=== PATIENT | male | born 1950 | race Caucasian/White ===

== ENCOUNTER → 2016-09-09 | Outpatient (CLI) | payer OTHER ==
[~2016-09-09] MED LIST: CHOL2000 PO; GLUC1CAP33 PO; HYDR-5688 PO; IBUP-103 PO; MULTTAB58 PO; OMEG10007 PO; PROB1TAB16 PO
--- NOTE | 2016-09-09 15:49 | DIAGNOSTIC IMAGING REPORT ---
TWO VIEW CHEST CLINICAL HISTORY: Lower respiratory tract infection. Cough and fever. FINDINGS: PA and lateral chest radiographs are compared to study dated 08/23/2015. The heart is top normal for projection. There is mild atherosclerotic calcification of the thoracic aorta. Emphysema and chronic interstitial thickening are similar to previous. No airspace consolidation or pleural effusion is identified. There is no pneumothorax. The bony thorax appears intact. Degenerative change and scoliosis are noted in the thoracic spine. IMPRESSION: Emphysematous change with no acute cardiopulmonary abnormality. Electronically signed by: Germán Avila M.D. 09/09/2016 3:47 PM Dictated Date/Time: 09/09/2016 3:46 PM
== END | disposition home or self-care (01) ==
LOC: C.RAD 15:26
PROVIDERS: ATTEND Plastic Surgery
DX: J22 Unspecified acute lower respiratory infection (principal)

== ENCOUNTER → 2016-09-25 | Outpatient (CLI) | payer OTHER ==
[~2016-09-25] MED LIST changes: +OPTIRAY 320 IV PRN
--- NOTE | 2016-09-25 08:10 | DIAGNOSTIC IMAGING REPORT ---
ABDOMEN AND PELVIS CT EXAMINATION PRE AND POST INTRAVENOUS CONTRAST CT DOSE: 1128.90 mGy.cm HISTORY: Flank pain. Nephrocalcinosis. R31.0 Gross exczxvgopL19.0 Urinary tract jbzmefpdeK23.0 Nephroi TECHNIQUE: Multiaxial CT images of the abdomen and pelvis were performed pre and post intravenous contrast enhancement. COMPARISON STUDY: T 2015 FINDINGS: Lung bases are clear. Liver is uniform throughout. There is a stable benign hemangioma posterior aspect right hepatic lobe. Bowel pattern is nonobstructive. There is moderate increase in fecal load throughout the colon. Right kidney shows mild cortical scarring. There are several microcysts present. These are unchanged from the prior study. There is no evidence for obstructive change involving the right renal collecting system. Left kidney shows interval resolution of the previously described calcification within the renal pelvis. 6. Cyst remains stable as do several smaller cortical cysts. There are small nonobstructing calcifications mid aspect left kidney measuring 3 mm with a 4 mm nonobstructing calcification lower pole left kidney. Calcifications again within the renal pelvis is no longer present. Bladder is midline. Distention of the distal aspects of the ureters. This is unchanged. This may represent an part congenital megaloureter distally. There is again no hydronephrosis. LAD is midline. There are several calcifications in the evening aspect of the bladder and/or peripheral margin of the prostate anteriorly. This represents no interval change. Enhancement characteristics of the urinary tracts appear unremarkable. There is no significant retroperitoneal adenopathy. Bladder is midline. There are no major filling defects. IMPRESSION: 1. Interval resolution of the calcification previous described within the left renal pelvis. 2. 2 nonobstructing left renal calcifications. 3. Several small renal cysts as well as a unchanging small posterior right hepatic lobe hemangioma. 4. 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 5. Several calcifications base of the bladder versus anterior prostate Electronically signed by: Balwinder Puente M.D. 09/25/2016 8:08 AM Dictated Date/Time: 09/25/2016 7:57 AM
== END | disposition home or self-care (01) ==
LOC: C.CTS 07:06
PROVIDERS: ATTEND Urology
DX: N20.0 Calculus of kidney (principal); N39.0 Urinary tract infection, site not specified; R31.0 Gross hematuria

== ENCOUNTER → 2016-10-16 | Outpatient (CLI) | payer OTHER ==
[~2016-10-16] MED LIST changes: -OPTIRAY 320 IV PRN
== END | disposition home or self-care (01) ==
LOC: C.LABSPEC 11:37
PROVIDERS: ATTEND Urology
DX: N20.0 Calculus of kidney (principal)

== ENCOUNTER → 2017-03-08 | Day surgery (SDC) | payer OTHER ==
[2017-02-23 09:57] VITALS: Ht 188 cm; Wt 88.0 kg
[2017-02-26 09:31] LABS: BASO % 0.2 %; BASO ABS # 0.01 K/uL (0-0.2); COMPLETE YES; EOS % 0.9 %; HEMATOCRIT 41.6 % (42-52); IG% 0.2 %; LYMPH % 24.5 %; LYMPH ABS # 1.36 K/uL (1.2-3.4); MEAN CELL VOLUME 88.7 fL (80-100); MEAN CORPUSCULAR HEMOGLOBIN 29.4 pg (25-34); MEAN CORPUSCULAR HGB CONC 33.2 g/dl (32-36); MEAN PLATELET VOLUME 9.6 fL (7.4-10.4); MONO % 8.8 %; NEUT % 65.4 %; PLATELET COUNT 197 K/uL (130-400); RED BLOOD COUNT 4.69 M/uL (4.7-6.1); WHITE BLOOD COUNT 5.56 K/uL (4.8-10.8)
[2017-02-26 09:42] LABS: BUN/CREATININE RATIO 18.3 (10-20); CALCIUM 9.7 mg/dl (8.5-10.1); CREATININE 1.1 mg/dl (0.60-1.40); POTASSIUM 4.2 mmol/L (3.5-5.1)
[~2017-03-08] VITALS: Ht 188 cm; Wt 88.0 kg
[~2017-03-08] MED LIST changes: +ATROPINE SULFATE 0.1 MG/ML 5ML SYR IV PRN; +CEFAZOLIN 2000 MG/60 ML D5W IV SCH; -CHOL2000 PO; +CLINDAMYCIN 600 MG/54 ML D5W IV SCH; +CLINDAMYCIN 600MG IV SCH; +DEXAMETHASONE SOD INJ 4 MG/ML VIAL ONE; +EpHEDrine SULFATE INJ 50 MG/ML AMP IV PRN; +EpHEDrine SULFATE INJ 50 MG/ML AMP ONE; +EpINEphrine INJ 1MG/ML AMP 1 MG/ML AMP ONE; +FENTANYL CITRATE INJ 50 MCG/1 ML 2 ML VIAL ONE; -GLUC1CAP33 PO; +HYDROCODONE/ACETAMOPHEN 5/325MG TAB PO PRN; +HYDROmorphone INJ 1 MG/ML SYR IV PRN; -IBUP-103 PO; +KETOROLAC TROMETHAMINE 30 MG/ML VIAL ONE; +LACTATED RINGER'S 1000ML 1,000 ML IV SCH; +LIDOCAINE HCL 2% 2 ML VIAL (20MG/ML) ONE; +MIDAZOLAM HCL 1 MG/ML 2ML VIAL ONE; -MULTTAB58 PO; -OMEG10007 PO; +ONDANSETRON INJ 2 MG/ML 2 ML VIAL IV PRN; +ONDANSETRON INJ 2 MG/ML 2 ML VIAL ONE; -PROB1TAB16 PO; +PROMETHAZINE HCL INJ 12.5 MG in SODIUM CHLORIDE 0.9% 50ML 50 ML IV PRN; +PROPOFOL IV EMULSION 10 MG/ML 20 ML VIAL IV ONE; +ROPIVACAINE 0.5% 5 MG/ML 30 ML VIAL ONE; +SCOPOLAMINE 1.5 MG TDSY TD ONE; +SODIUM CHLORIDE 0.9% 1000ML 1,000 ML IV SCH
--- NOTE | 2017-03-08 06:50 | History & Physical Bridge - SC ---
H&P Re-Evaluation Bridge Note: I have examined the patient, reviewed the History & Physical and in the interval since the performance of the History & Physical I have noted the following changes of clinical significance: No changes noted
--- NOTE | 2017-03-08 08:16 | Discharge Instructions-SurgCtr ---
Discharge Instructions Date of Service Mar 08, 2017. Visit Reason for Visit: Left Knee Acute Medial Meniscal Tear Discharge Discharge Diagnosis / Problem: SAME ABOVE Discharge Goals Goal(s): Decrease discomfort, Improve function Activity Recommendations Activity Limitations: as noted below Driving or Machine Use: resume 1 day after discharge Weightbearing Status: Left weightbearing (as tolerated) Anesthesia . Post Anesthesia Instructions: If you have had General Anesthesia or IV Sedation: * Do not drive today. * Resume driving when surgeon permits. * Do not make important decisions or sign legal documents today. * Call surgeon for: 1. Temperature elevations greater than 101 degrees F. 2. Uncontrollable pain. 3. Excessive bleeding. 4. Persistent nausea and vomiting. 5. Medication intolerance (nausea, vomiting or rash). * For nausea and vomiting use only clear liquids such as: tea, soda, bouillon until nausea subsides, then gradually increase diet as tolerated. * If you have any concerns or questions, call your surgeon's office. If physician is unavailable and it is an emergency, call 911 or go to the nearest emergency room. . Instructions / Follow-Up Instructions / Follow-Up MEDICATIONS: * Resume previous medications unless instructed otherwise by your surgeon. * Always take pain medication on a full stomach or with food to avoid upset stomach. * Do not drink alcohol or drive while taking narcotics. * Ibuprofen or Tylenol may be taken if narcotic not needed. SPECIAL CARE INSTRUCTIONS: __ None _X_ Keep extremity elevated and iced x 48 hours; apply ice 20-30 minutes 8-10 times/day. May remove at night. _X_ Crutches _X_ May discard when able __ Brace/Post-op shoe __ 24 hrs/day __ Remove at night _X_ Dressing __ Maintain until seen in office, may shower with plastic over site _X_ Remove dressings in 24-48 hours and then may shower _X_ Cover incisions with band-aids after showering __ Do not remove steri-strips Call physician if chills or temperature rises above 102 degrees or pain unrelieved by prescribed pain medications. Office [phone] Diet Recommendations Home Diet: no limitations Fluid Restriction: None Procedures Procedures Performed: Left Knee Arthroscopy With Partial Medial Meniscectomy, Chondroplasty Pending Studies Studies pending at discharge: no Work Instructions Return To Work: after follow-up Medical Emergencies . Who to Call and When: Medical Emergencies: If at any time you feel your situation is an emergency, please call 911 immediately. . Non-Emergent Contact Non-Emergency issues call your: Primary Care Provider Call Non-Emergent contact if: you have a fever, temperature is above 101.5 . . "Provider Documentation" section prepared by Patel Jj. .
[2017-03-08] MEDS: FENTANYL CITRATE INJ 50 MCG/1 ML 2 ML VIAL IV PRN ×4 (08:25→08:53)
[2017-03-08 09:24] VITALS: TEMP 36.5
[2017-03-08 09:47] VITALS: BP 145/80; PULSE 55; O2SAT 100
--- NOTE | 2017-03-08 10:03 | Anesthesiology Progress Note ---
Anesthesia Post Op Note Date & Time Mar 08, 2017 at 10:00 Vital Signs Pain Intensity: 2 Vital Signs Past 12 Hours Date Time Temp Pulse Resp B/P (MAP) Pulse Ox O2 Delivery O2 Flow Rate FiO2 03/08/17 09:47 55 16 145/80 (101) 100 Room Air 03/08/17 09:24 36.5 57 16 123/73 (90) 99 Room Air 03/08/17 09:12 60 6 100 03/08/17 09:12 60 6 03/08/17 09:11 132/80 03/08/17 09:10 36.3 57 12 132/80 100 Room Air 03/08/17 09:07 56 13 03/08/17 09:07 57 13 99 03/08/17 09:06 141/81 03/08/17 09:02 60 12 97 03/08/17 09:02 61 12 03/08/17 09:01 125/74 03/08/17 08:57 55 0 03/08/17 08:57 56 0 99 03/08/17 08:56 136/83 03/08/17 08:52 61 12 98 03/08/17 08:52 61 12 03/08/17 08:51 134/77 03/08/17 08:47 60 13 03/08/17 08:47 60 13 100 03/08/17 08:46 135/85 03/08/17 08:42 55 14 03/08/17 08:42 54 14 100 03/08/17 08:41 133/83 03/08/17 08:37 56 3 100 03/08/17 08:37 56 3 03/08/17 08:36 124/85 03/08/17 08:32 63 9 03/08/17 08:32 65 9 100 03/08/17 08:31 134/81 03/08/17 08:27 69 7 100 03/08/17 08:27 67 7 03/08/17 08:26 121/75 03/08/17 08:22 68 12 100 03/08/17 08:22 68 12 03/08/17 08:21 133/80 03/08/17 08:17 71 18 100 03/08/17 08:17 72 18 03/08/17 08:15 98/64 03/08/17 08:13 107/58 03/08/17 08:12 36.3 65 12 107/58 98 Mask 5 03/08/17 08:12 65 5 98 03/08/17 08:12 65 5 03/08/17 06:32 36.5 60 16 127/79 (95) 100 Room Air Notes Mental Status: alert / awake / arousable, participated in evaluation Pt Amnestic to Procedure: Yes Nausea / Vomiting: adequately controlled Pain: adequately controlled Airway Patency, RR, SpO2: stable & adequate BP & HR: stable & adequate Hydration State: stable & adequate Anesthetic Complications: no major complications apparent Pt with c/o chest pain in recovery. States that it has been going on for past 3 weeks and has had it in the past when was having anxiety attacks; also anxious about more upcoming surgeries on his veins. Repeat EKG done without significant change. Vital signs all stable and within normal limit. Chest pain almost gone upon discharge. Talked to both patient and and suggested that patient follow up with PCP this week before his other upcoming surgeries. Patient and agree with plan.
--- NOTE | 2017-03-08 15:28 | [facility] Post Operative Brief Note ---
Immediate Operative Summary Operative Date Mar 08, 2017. Pre-Operative Diagnosis Left Knee Medial Meniscus Tear Post-Operative Diagnosis Same Procedure(s) Performed Left Knee Arthroscopy With Partial Medial Meniscectomy, Chondroplasty Surgeon Dr. Garza Book Binder Surgeon(s) Nuris Jj PA-C Estimated Blood Loss 0 mL Findings as above Specimens None Complication(s) None Disposition Recovery Room / PACU
--- NOTE | 2017-03-08 18:05 | OPERATIVE REPORT ---
DATE OF OPERATION: 03/08/2017 PREOPERATIVE DIAGNOSIS: Medial meniscal tear of the left knee. 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 PROCEDURE: Left knee diagnostic arthroscopy with limited synovectomy including plica excision, chondroplasty and partial medial meniscectomy. SURGEON: Dr. Roldan Garza. HALL WORKER: Xiang Jj PA-C, whose assistance was necessary for positioning the arm and helping with instrumentation. ANESTHESIA: General. COMPLICATIONS: None. CONDITION: Stable to PACU. INDICATIONS: Manny is a pleasant 66-year-old male who presented to my office with acute onset of left knee pain. His pain was laterally at first and then it migrated medially. MRI did show a complex medial meniscal tear. He was mostly complaining of retracting Paula cyst on the posterior aspect of his left knee. After failing conservative treatment, he elected to undergo arthroscopy. OPERATION AND FINDINGS: On 03/08/2017, arrived at [facility] for the above procedure. He was seen in the preoperative holding area and the operative extremity was identified and signed. He was given a preoperative antibiotic and taken back to the operating room, laid on the table in supine position and put under general anesthesia. The left knee was then prepped and draped in sterile fashion. Time-out was done and the patient and operative extremity was properly identified. A scope was placed in the lateral parapatellar portal. Diagnostic arthroscopy showed no cartilage damage within the trochlea. There were no loose bodies in the suprapatellar pouch. The scope was then brought into the medial compartment. There was some grade 2 and grade 3 chondral changes off the distal medial femoral condyle. There was a complex tear of the posterior medial meniscus. A medial parapatellar portal was made under direct visualization. A shaver was used to do a light chondroplasty of the loose cartilage fragments. A shaver and a biter were used to remove the loose meniscal fragments and take the meniscus back to stable margins. Multiple pictures were taken. The scope was placed in the lateral compartment, there was no cartilage or meniscus damage in the lateral compartment. The scope was brought into the trochlea. ACL and PCL were intact. The scope was then placed in the medial parapatellar portal. Repeat diagnostic arthroscopy showed no additional pathology. The scope was placed in the posterior aspect of the knee and no additional pathology was seen. The knee was then irrigated and arthroscopic instruments were removed. Portal sites were closed with 3-0 nylon. The knee was then injected with 30 mL of ropivacaine with Toradol. He was then placed in a soft compressive dressing, extubated, transferred to a [facility] and taken to the postanesthesia care unit in stable condition. He tolerated the procedure well. I attest to the content of the Intraoperative Record and any orders documented therein. Any exception s are noted below.
== END | disposition home or self-care (01) ==
LOC: X.SURG 06:15
PROVIDERS: ATTEND Orthopaedic Surgery
DX: S83.232A Complex tear of medial meniscus, current injury, left knee, initial encounter (principal); M94.262 Chondromalacia, left knee; X58.XXXA Exposure to other specified factors, initial encounter

== ENCOUNTER → 2017-03-28 | Outpatient (CLI) | payer OTHER ==
[~2017-03-28] MED LIST changes: -ATROPINE SULFATE 0.1 MG/ML 5ML SYR IV PRN; -CEFAZOLIN 2000 MG/60 ML D5W IV SCH; -CLINDAMYCIN 600 MG/54 ML D5W IV SCH; -CLINDAMYCIN 600MG IV SCH; -DEXAMETHASONE SOD INJ 4 MG/ML VIAL ONE; -EpHEDrine SULFATE INJ 50 MG/ML AMP IV PRN; -EpHEDrine SULFATE INJ 50 MG/ML AMP ONE; -EpINEphrine INJ 1MG/ML AMP 1 MG/ML AMP ONE; -FENTANYL CITRATE INJ 50 MCG/1 ML 2 ML VIAL ONE; -HYDROCODONE/ACETAMOPHEN 5/325MG TAB PO PRN; -HYDROmorphone INJ 1 MG/ML SYR IV PRN; -KETOROLAC TROMETHAMINE 30 MG/ML VIAL ONE; -LACTATED RINGER'S 1000ML 1,000 ML IV SCH; -LIDOCAINE HCL 2% 2 ML VIAL (20MG/ML) ONE; -MIDAZOLAM HCL 1 MG/ML 2ML VIAL ONE; -ONDANSETRON INJ 2 MG/ML 2 ML VIAL IV PRN; -ONDANSETRON INJ 2 MG/ML 2 ML VIAL ONE; -PROMETHAZINE HCL INJ 12.5 MG in SODIUM CHLORIDE 0.9% 50ML 50 ML IV PRN; -PROPOFOL IV EMULSION 10 MG/ML 20 ML VIAL IV ONE; -ROPIVACAINE 0.5% 5 MG/ML 30 ML VIAL ONE; -SCOPOLAMINE 1.5 MG TDSY TD ONE; -SODIUM CHLORIDE 0.9% 1000ML 1,000 ML IV SCH
--- NOTE | 2017-03-28 15:04 | DIAGNOSTIC IMAGING REPORT ---
LEFT SHOULDER MRI HISTORY: Left SHOULDER PAIN TECHNIQUE: Multiplanar multisequence MRI of the left shoulder was performed without contrast. COMPARISON STUDY: Left shoulder MRI 05/11/2016. FINDINGS: AC joint: Intact Rotator cuff: The subscapularis and teres minor tendons are intact. Full-thickness tear of the entire supraspinatus tendon demonstrating up to 3.2 cm of retraction. There is also a full-thickness tear involving the anterior fibers of the infraspinatus tendon without associated retraction. There is small amount of fluid within the subacromial/subdeltoid bursa. Small linear full-thickness tear within the posterior fibers of the infraspinatus. Fatty atrophy of the supraspinatus and infraspinatus muscles. Labrum: No change in the circumferential degeneration/tear. Biceps tendon: Thickening with a split tear within the proximal long head of the biceps tendon as it crosses the humeral head. Bones: No fractures. Superior subluxation of the humeral head in relation to the glenoid consistent with a chronic rotator cuff injury. This results in narrowing of the subacromial space. Cartilage: Near full-thickness cartilage loss within the superior glenoid and humeral head consistent with degenerative change. Miscellaneous: Scattered foci susceptibility artifact consistent with postoperative change. Persistent fluid within the subcoracoid recess with a few small intra-articular loose bodies. IMPRESSION: 1. No significant change in the full-thickness supraspinatus and infraspinatus tears as described above. 2. Circumferential degeneration/tear of the labrum is again noted. 3. Split tear and tendinopathy within the proximal long head of the biceps tendon is also unchanged. 4. 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 5. No change in the superior subluxation of the humeral head in relation to the glenoid due to the chronic rotator cuff injury. 6. Small joint effusion within the subcoracoid recess containing a few small intra-articular loose bodies. Electronically signed by: Cheikh Harper M.D. 03/28/2017 3:02 PM Dictated Date/Time: 03/28/2017 2:52 PM
== END | disposition home or self-care (01) ==
LOC: C.MRIBC 13:24
PROVIDERS: ATTEND Orthopaedic Surgery
DX: M75.102 Unspecified rotator cuff tear or rupture of left shoulder, not specified as traumatic (principal)

== ENCOUNTER → 2017-05-15 | Outpatient (CLI) | payer OTHER ==
[~2017-05-15] MED LIST changes: +AMOX1TAB44 PO; +CHOL1000 PO; +CHONCAP PO; +CHONDROITIN PO; +GLUC10007 PO; +MULT-506 PO; +OMEG10007 PO; +[UNRECOGNIZED DRUG - OTHER] PO
[2017-05-15 13:21] LABS: BASO % 0.2 %; BASO ABS # 0.01 K/uL (0-0.2); COMPLETE YES; EOS % 0.8 %; IG% 0.2 %; LYMPH % 27.1 %; LYMPH ABS # 1.39 K/uL (1.2-3.4); MEAN CELL VOLUME 87.6 fL (80-100); MEAN CORPUSCULAR HEMOGLOBIN 29.7 pg (25-34); MEAN CORPUSCULAR HGB CONC 33.9 g/dl (32-36); MEAN PLATELET VOLUME 10.5 fL (7.4-10.4); MONO % 9.2 %; NEUT % 62.5 %; PLATELET COUNT 203 K/uL (130-400); RED BLOOD COUNT 4.68 M/uL (4.7-6.1); WHITE BLOOD COUNT 5.12 K/uL (4.8-10.8)
[2017-05-15 14:54] LABS: BLOOD UREA NITROGEN 23 mg/dl (7-18); BUN/CREATININE RATIO 20.3 (10-20); CALCIUM 9.2 mg/dl (8.5-10.1); CARBON DIOXIDE 26 mmol/L (21-32); CHLORIDE 104 mmol/L (98-107); CREATININE 1.11 mg/dl (0.60-1.40); GLUCOSE 98 mg/dl (70-99); POTASSIUM 4.7 mmol/L (3.5-5.1); SODIUM 138 mmol/L (136-145)
== END | disposition home or self-care (01) ==
LOC: C.LABBC 11:18
PROVIDERS: ATTEND Orthopaedic Surgery
DX: Z01.812 Encounter for preprocedural laboratory examination (principal); M75.122 Complete rotator cuff tear or rupture of left shoulder, not specified as traumatic

== ENCOUNTER → 2017-10-29 | Outpatient (CLI) | payer OTHER ==
[~2017-10-29] MED LIST changes: -CHONDROITIN PO; -HYDR-5688 PO; +KETO10TA PO; +OXYC-57 PO
--- NOTE | 2017-10-29 14:57 | DIAGNOSTIC IMAGING REPORT ---
KUB CLINICAL HISTORY: N20.0 [id number] COMPARISON STUDY: 03/22/2016 FINDINGS: The renal shadows are largely obscured by overlying bowel gas and fecal material. There is an equivocal 5 mm left renal calculus. There are no calcifications suspicious for ureteral calculi. There is no pathologic bowel dilatation. IMPRESSION: 1. Technically limited study secondary to overlying bowel gas and fecal material 2. Equivocal 5 mm left renal calculus Electronically signed by: Wagner Peters M.D. 10/29/2017 2:55 PM Dictated Date/Time: 10/29/2017 2:54 PM
[2017-10-29 16:47] LABS: BASO % 0.2 %; BASO ABS # 0.01 K/uL (0-0.2); EOS % 0.8 %; EOS ABS # 0.04 K/uL (0-0.5); HEMATOCRIT 39.1 % (42-52); HEMOGLOBIN 13.3 g/dL (14.0-18.0); LYMPH % 28.6 %; MEAN CELL VOLUME 86.7 fL (80-100); MEAN CORPUSCULAR HEMOGLOBIN 29.5 pg (25-34); MEAN PLATELET VOLUME 10.3 fL (7.4-10.4); MONO ABS # 0.44 K/uL (0.11-0.59); NEUT % 61.4 %; PLATELET COUNT 203 K/uL (130-400); WHITE BLOOD COUNT 4.89 K/uL (4.8-10.8)
[2017-10-29 17:23] LABS: BLOOD UREA NITROGEN 20 mg/dl (7-18); CALCIUM 9.1 mg/dl (8.5-10.1); CARBON DIOXIDE 25 mmol/L (21-32); CREATININE 0.87 mg/dl (0.60-1.40); GLUCOSE 83 mg/dl (70-99); POTASSIUM 4.4 mmol/L (3.5-5.1); SODIUM 136 mmol/L (136-145)
== END | disposition home or self-care (01) ==
LOC: C.RADBC 13:54
PROVIDERS: ATTEND Urology
DX: N20.0 Calculus of kidney (principal); M75.02 Adhesive capsulitis of left shoulder

== ENCOUNTER → 2018-02-20 | Outpatient (CLI) | payer OTHER ==
[~2018-02-20] MED LIST changes: -AMOX1TAB44 PO; -[UNRECOGNIZED DRUG - OTHER] PO
--- NOTE | 2018-02-20 14:11 | DIAGNOSTIC IMAGING REPORT ---
(CHEST) THORAX WITHOUT CLINICAL HISTORY: J47.9 bronchiectasis COMPARISON STUDY: Chest x-ray dated to 1117 CT DOSE: 663.77 mGycm TECHNIQUE: CT of the thorax was performed from the thoracic inlet to the lung bases. Images are reviewed in the axial, sagittal, and coronal planes. IV contrast was not administered for this examination. A dose lowering technique was utilized adhering to the principles of ALARA. FINDINGS: Thyroid: Imaged portions of the thyroid gland are normal in appearance. Thoracic aorta: The thoracic aorta is normal in course and caliber, noting standard 3 vessel arch anatomy. Heart: There are mild coronary artery calcifications present. Lungs and pleural spaces: There are no pleural effusions. There is no focal pulmonary consolidation. There are no suspicious pulmonary masses. There are dependent atelectatic changes. There is a calcified granuloma within the superior segment of the left lower lobe. There are no significant bronchiectatic changes present. The examination is mildly compromised due to respiratory motion artifact. Mediastinum: There is no evidence of pathologic adenopathy Eulalia: There is no evidence of pathologic hilar adenopathy given the limitations of a noncontrast study Axilla: There is no evidence of pathologic adenopathy Upper abdomen: Partially visualized upper abdominal viscera is within normal limits. Skeletal structures: There are no lytic or blastic osseous lesions. IMPRESSION: 1. No acute intrathoracic findings 2. No evidence of pathologic adenopathy 3. No evidence of acute brachial consolidation 4. No significant bronchiectasis Electronically signed by: Wagner Peters M.D. 02/20/2018 2:09 PM Dictated Date/Time: 02/20/2018 2:05 PM
== END | disposition home or self-care (01) ==
LOC: C.CTS 13:55
PROVIDERS: ATTEND Internal Medicine Critical Care Medicine
DX: J47.9 Bronchiectasis, uncomplicated (principal)

== ENCOUNTER → 2018-03-18 | Outpatient (CLI) | payer OTHER | END | disposition home or self-care (01) | LOC: C.LABSPEC 17:30 | PROVIDERS: ATTEND Urology | DX: N20.0 Calculus of kidney (principal); N39.0 Urinary tract infection, site not specified ==